=== PATIENT | male | born 1960 | race Caucasian/White ===

== ENCOUNTER → 2019-07-08 14:08 | Outpatient (BNVA) | payer MEDICAID, SELFPAY | PROVIDERS: Family Provider Nurse Practitioner Family; PCP Nurse Practitioner Family; Visit Provider Nurse Practitioner | DX: M54.16 Radiculopathy, lumbar region (principal); M54.2 Cervicalgia; Z79.891 Long term (current) use of opiate analgesic | CPT/HCPCS: 99213 ==

== ENCOUNTER → 2019-08-29 14:42 | Outpatient (BNVA) | payer MEDICAID, SELFPAY | PROVIDERS: Family Provider Nurse Practitioner Family; PCP Nurse Practitioner Family; Visit Provider Specialist | DX: G43.711 Chronic migraine without aura, intractable, with status migrainosus (principal); G31.84 Mild cognitive impairment of uncertain or unknown etiology; Z87.891 Personal history of nicotine dependence | CPT/HCPCS: 96116; 99214 ==

== ENCOUNTER → 2019-08-30 14:08 | Outpatient (BNVA) | payer MEDICAID, SELFPAY | PROVIDERS: Family Provider Nurse Practitioner Family; PCP Nurse Practitioner Family; Visit Provider Anesthesiology | DX: G89.29 Other chronic pain (principal); M54.16 Radiculopathy, lumbar region; M54.12 Radiculopathy, cervical region; Z79.891 Long term (current) use of opiate analgesic | CPT/HCPCS: 99214 ==

== ENCOUNTER → 2019-11-01 13:13 | Outpatient (BNVA) | payer MEDICAID, SELFPAY | PROVIDERS: Family Provider Nurse Practitioner Family; PCP Nurse Practitioner Family; Visit Provider Nurse Practitioner | DX: M54.16 Radiculopathy, lumbar region (principal); M25.552 Pain in left hip; M54.2 Cervicalgia; Z79.891 Long term (current) use of opiate analgesic | CPT/HCPCS: 99213; 99214 ==

== ENCOUNTER → 2019-11-24 07:45 | Outpatient (BNVA) | payer MEDICAID, SELFPAY | PROVIDERS: Family Provider Nurse Practitioner Family; PCP Nurse Practitioner Family; Visit Provider Specialist | DX: G43.711 Chronic migraine without aura, intractable, with status migrainosus (principal); Z87.891 Personal history of nicotine dependence | CPT/HCPCS: 99214 ==

== ENCOUNTER 2019-12-29 17:14 | Outpatient (CLI) | payer MEDICAID, SELFPAY ==
--- NOTE | 2019-12-29 17:34 | MR_ITS ---
WS: [id number] MRI HEAD WITHOUT CONTRAST TECHNIQUE: Sagittal T1, T2 axial, T2 axial FLAIR, axial and coronal T1 images, axial susceptibility w eighted imaging, axial diffusion weighted images, and coronal T2 images were obtained. CLINICAL INFORMATION: G43.711 Chronic migraine without aura, intractable, with ... COMPARISON: CT September 16, 2017 FINDINGS: No evidence of restricted diffusion to suggest acute ischemia. Ventricular system and basal cisterns are patent. No suspicious intracranial signal abnormalities. Minimal small vessel changes with modera te parenchymal volume loss worse involving the parietal lobes. Temporal lobes and hippocampal formati ons are normal in appearance. Incidental megacisterna magna. Normal posterior fossa. Normal vascular flow voids at the skull base. Mild mucosal thickening in the paranasal sinuses. Mastoid air cells are well aerated. Lobulated 3.5 mm suspected aneurysm along the right cavernous carotid artery although only seen on axial T2 imaging. This may be due to volume aver aging and recommend further evaluation with CTA or MRA. No hemosiderin on susceptibly weighted images. Normal optic chiasm and pituitary infundibulum. MR/MR head wo con* [id number] IMPRESSION: 1. No evidence of restricted diffusion to suggest acute ischemia. 2. Minimal small vessel changes with moderate parenchymal volume loss worse in the parietal lobes. 3. Temporal lobes and hippocampal formations are normal in appearance. 4. No hemosiderin on the susceptibility weighted images. 5. Lobulated flow void along the right cavernous carotid artery measuring 3.5 mm suspicious for small aneurysm. Recommend further evaluation with MRA or CTA. This is only seen on the axial T2 imaging. 6. Paranasal sinuses and mastoid air cells well aerated. 7. No other significant findings.
== END 2019-12-29 17:15 | disposition home or self-care (01) ==
LOC: RADSHAW 17:18
PROVIDERS: PCP Nurse Practitioner Family; Visit Provider Specialist
DX: G43.711 Chronic migraine without aura, intractable, with status migrainosus (principal)
CPT/HCPCS: 70551

== ENCOUNTER → 2020-01-04 07:57 | Outpatient (BNVA) | payer MEDICAID, SELFPAY | PROVIDERS: PCP Nurse Practitioner Family; Visit Provider Anesthesiology | DX: G89.29 Other chronic pain (principal); M54.16 Radiculopathy, lumbar region; M54.12 Radiculopathy, cervical region; G43.711 Chronic migraine without aura, intractable, with status migrainosus; Z79.891 Long term (current) use of opiate analgesic | CPT/HCPCS: 99214 ==

== ENCOUNTER 2020-01-25 09:17 | Outpatient (CLI) | payer MEDICAID, SELFPAY ==
--- NOTE | 2020-01-25 09:30 | MR_ITS ---
WS: [id number] MRA HEAD TECHNIQUE: Axial 3-D TOF images obtained with axial images and axial, sagittal, and coronal 2-D refor matted images. CLINICAL INFORMATION: R90.89 Other abnormal findings on diagnostic imaging of c... 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 No flow-abernathy iting stenosis. Distal vertebral arteries are patent. Basilar artery is patent. Normal vascularity to the [employer] territo ry bilaterally. Persistent left posterior cerebral artery. Dominant anterior circulation. Both ICAs are patent at the skull base. Normal vascularity to the [place] and MCA territories bilaterally . No evidence of high-grade proximal stenosis. Hypoplastic left A1 segment. MR/MR angio head wo con [id number] IMPRESSION: 1. 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 No flow-limiting stenosis. 2. Dominant anterior circulation with patent basilar artery and persistent lef t posterior cerebral artery. 3. Normal vascularity to the [place] and MCA territories bilaterally. Normal varia nt hypoplastic left A1.
== END 2020-01-25 09:18 | disposition home or self-care (01) ==
LOC: RADSHAW 09:23
PROVIDERS: PCP Nurse Practitioner Family; Visit Provider Specialist
DX: R90.89 Other abnormal findings on diagnostic imaging of central nervous system (principal); I72.0 Aneurysm of carotid artery
CPT/HCPCS: 70544

== ENCOUNTER → 2020-01-31 08:44 | Outpatient (BNVA) | payer MEDICAID, SELFPAY | PROVIDERS: PCP Nurse Practitioner Family; Visit Provider Specialist | DX: G43.711 Chronic migraine without aura, intractable, with status migrainosus (principal) | CPT/HCPCS: 99214 ==

== ENCOUNTER → 2020-03-13 10:21 | Outpatient (BNVA) | payer MEDICAID, SELFPAY | PROVIDERS: PCP Nurse Practitioner Family; Visit Provider Nurse Practitioner | DX: G89.29 Other chronic pain (principal); M54.42 Lumbago with sciatica, left side; M54.16 Radiculopathy, lumbar region; M54.12 Radiculopathy, cervical region; G43.711 Chronic migraine without aura, intractable, with status migrainosus; F07.81 Postconcussional syndrome; Z79.891 Long term (current) use of opiate analgesic | CPT/HCPCS: 99215 ==

== ENCOUNTER → 2020-04-05 09:35 | Outpatient (BNVA) | payer MEDICAID, SELFPAY | PROVIDERS: PCP Nurse Practitioner Family; Visit Provider Anesthesiology | DX: G89.29 Other chronic pain (principal); M54.12 Radiculopathy, cervical region; Z79.891 Long term (current) use of opiate analgesic | CPT/HCPCS: 62321; J1040 ==

== ENCOUNTER → 2020-04-10 09:49 | Outpatient (BNVA) | payer MEDICAID, SELFPAY | PROVIDERS: PCP Nurse Practitioner Family; Visit Provider Anesthesiology | DX: G89.29 Other chronic pain (principal); M54.16 Radiculopathy, lumbar region; M54.12 Radiculopathy, cervical region; G43.711 Chronic migraine without aura, intractable, with status migrainosus; Z79.891 Long term (current) use of opiate analgesic | CPT/HCPCS: 99214 ==

== ENCOUNTER → 2020-05-30 09:49 | Outpatient (BNVA) | payer MEDICAID, SELFPAY | PROVIDERS: PCP Nurse Practitioner Family; Visit Provider Anesthesiology | DX: G89.29 Other chronic pain (principal); M54.16 Radiculopathy, lumbar region; M54.12 Radiculopathy, cervical region; G43.711 Chronic migraine without aura, intractable, with status migrainosus; Z79.899 Other long term (current) drug therapy; Z79.891 Long term (current) use of opiate analgesic | CPT/HCPCS: 99214 ==

== ENCOUNTER → 2020-07-24 10:30 | Outpatient (BNVA) | payer BC, MEDICAID, SELFPAY | PROVIDERS: PCP Nurse Practitioner Family; Visit Provider Specialist | DX: G43.711 Chronic migraine without aura, intractable, with status migrainosus (principal); M54.16 Radiculopathy, lumbar region; Z87.891 Personal history of nicotine dependence | CPT/HCPCS: 99213; 99214 ==

== ENCOUNTER → 2020-08-07 08:50 | Outpatient (BNVA) | payer BC, MEDICAID, SELFPAY | PROVIDERS: PCP Nurse Practitioner Family; Visit Provider Anesthesiology | DX: G89.29 Other chronic pain (principal); G43.711 Chronic migraine without aura, intractable, with status migrainosus; M54.12 Radiculopathy, cervical region; M54.16 Radiculopathy, lumbar region; Z79.899 Other long term (current) drug therapy; Z79.891 Long term (current) use of opiate analgesic | CPT/HCPCS: 99214 ==

== ENCOUNTER → 2022-08-18 11:46 | Outpatient (BNVA) | payer BC, MEDICAID, SELFPAY | PROVIDERS: PCP Nurse Practitioner Family; Visit Provider Anesthesiology Pain Medicine | DX: G89.29 Other chronic pain (principal); M19.011 Primary osteoarthritis, right shoulder; M48.02 Spinal stenosis, cervical region | CPT/HCPCS: 72050; 73030 ==

== ENCOUNTER 2022-09-15 15:27 | Outpatient (CLI) | payer BC, MEDICAID, SELFPAY ==
--- NOTE | 2022-09-15 15:35 | MR_ITS ---
WS: [id number] MRI CERVICAL SPINE NONCONTRAST TECHNIQUE: Sagittal T1, T2 and STIR imaging. Axial T2, gradient, and fiesta imaging. CLINICAL INFORMATION: M54.12 - Radiculopathy, cervical region COMPARISON: MRI 2019 FINDINGS: Straightening with reversal normal cervical lordosis. Cord signal is normal. Mild disc bulging C4-C5, C5-C6, C6-C7.. C2-C3: Mild osteophytic ridging. Mild facet arthropathy. Mild RIGHT foraminal narrowing. C3-C4: Mild facet arthropathy. Mild to moderate LEFT bony foraminal narrowing. Spinal canal is patent . C4-C5: Disc osteophyte complex with endplate ridging. Moderate LEFT and mild RIGHT bony foraminal litzy rowing. Mild central canal stenosis. C5-C6: Disc osteophyte complex with endplate ridging. Slight indentation RIGHT ventral cervical cord. Moderate LEFT and mild RIGHT bony foraminal narrowing. Slight indentation the RIGHT ventral cervical cord. Mild central canal stenosis. C6-C7: Disc osteophyte complex with endplate ridging. Mild central canal stenosis. Moderate to severe LEFT and moderate RIGHT bony foraminal narrowing. Moderate facet arthropathy. Mild central canal carly nosis. C7-T1: Mild to moderate LEFT and mild RIGHT bony foraminal narrowing. Spinal canal is patent. Mild fa cet arthropathy. Visualized brain stem structures: Normal. Prevertebral soft tissues: Normal. MR/MR cervical spin wo con* [id number] IMPRESSION: 1. Straightening with reversal normal cervical lordosis is new from previous. Cord signal is normal. 2. Disc osteophyte complexes with mild central canal stenosis C4-C5, C5-C6 and C6-C7. Slight contact of the cervical cord at these levels. This is unchanged from previous. 3. Mild to moderate LEFT C3-C4, LEFT C4-C5, moderate LEFT C5-C6 bony foraminal narrowing. Moderate LEFT C6-C7 bony foraminal narrowing. Foraminal narrowing i s similar to previous. 4. No other significant interval changes.
== END 2022-09-15 15:28 | disposition home or self-care (01) ==
LOC: RAD 15:30
PROVIDERS: PCP Nurse Practitioner Family; Visit Provider Anesthesiology Pain Medicine
DX: M54.12 Radiculopathy, cervical region (principal); M25.78 Osteophyte, vertebrae; M48.02 Spinal stenosis, cervical region
CPT/HCPCS: 72141

== ENCOUNTER → 2022-09-18 10:08 | Outpatient (BNVA) | payer BC, MEDICAID, SELFPAY | PROVIDERS: PCP Nurse Practitioner Family; Visit Provider Nurse Practitioner | DX: Z79.899 Other long term (current) drug therapy (principal) | CPT/HCPCS: 82607 ==

== ENCOUNTER → 2022-11-27 10:23 | Outpatient (BNVA) | payer BC, MEDICAID, SELFPAY | PROVIDERS: PCP Nurse Practitioner Family; Visit Provider Anesthesiology Pain Medicine | DX: M54.16 Radiculopathy, lumbar region (principal) | CPT/HCPCS: 72110 ==

== ENCOUNTER → 2023-04-21 13:41 | Outpatient (BNVA) | payer BC, MEDICAID, SELFPAY | PROVIDERS: PCP Nurse Practitioner Family; Visit Provider Nurse Practitioner Family | DX: F03.90 Unspecified dementia, unspecified severity, without behavioral disturbance, psychotic disturbance, mood disturbance, and anxiety (principal) | CPT/HCPCS: 80053; 82607; 84439; 84443; 85007; 85027; 86140 ==

== ENCOUNTER → 2023-10-15 08:18 | Outpatient (BNVA) | payer MEDICARE, MEDICAID, SELFPAY | PROVIDERS: PCP Nurse Practitioner Family; Visit Provider Psychiatry & Neurology Neurology | DX: G44.309 Post-traumatic headache, unspecified, not intractable (principal); R41.3 Other amnesia; R55 Syncope and collapse; M54.2 Cervicalgia; M54.12 Radiculopathy, cervical region; M54.16 Radiculopathy, lumbar region; G89.29 Other chronic pain; R32 Unspecified urinary incontinence; N40.0 Benign prostatic hyperplasia without lower urinary tract symptoms; F03.90 Unspecified dementia, unspecified severity, without behavioral disturbance, psychotic disturbance, mood disturbance, and anxiety; E55.9 Vitamin D deficiency, unspecified; R29.2 Abnormal reflex; I67.1 Cerebral aneurysm, nonruptured | CPT/HCPCS: 36415; 80051; 82306; 82542; 82607; 83735; 83921; 84207; 84425; 86592; 86780; 99203 ==

== ENCOUNTER → 2023-12-07 15:47 | Outpatient (BNVA) | payer MEDICARE, MEDICAID, SELFPAY | PROVIDERS: PCP Nurse Practitioner Family; Visit Provider Nurse Practitioner Family | DX: R60.0 Localized edema (principal); R60.9 Edema, unspecified; Z79.899 Other long term (current) drug therapy | CPT/HCPCS: 80053; 81003; 83880; 85025; 87086 ==

== ENCOUNTER → 2024-01-05 06:58 | Outpatient (BNVA) | payer MEDICARE, MEDICAID, SELFPAY | PROVIDERS: PCP Nurse Practitioner Family; Visit Provider Psychiatry & Neurology Neurology | DX: G43.711 Chronic migraine without aura, intractable, with status migrainosus (principal); R55 Syncope and collapse; R41.3 Other amnesia | CPT/HCPCS: 95819 ==

== ENCOUNTER → 2024-04-12 14:46 | Outpatient (BNVA) | payer MEDICARE, MEDICAID, SELFPAY | PROVIDERS: PCP Nurse Practitioner Family; Visit Provider Psychiatry & Neurology Neurology | DX: F03.90 Unspecified dementia, unspecified severity, without behavioral disturbance, psychotic disturbance, mood disturbance, and anxiety (principal); G44.309 Post-traumatic headache, unspecified, not intractable; I67.1 Cerebral aneurysm, nonruptured | CPT/HCPCS: 36415; 82746; 84207; 99212; 99213 ==

== ENCOUNTER 2024-05-09 14:42 | Outpatient (CLI) | payer MEDICARE, MEDICAID, SELFPAY ==
--- NOTE | 2024-05-09 15:15 | MR_ITS ---
WS: [id number] MRI HEAD WITH CONTRAST TECHNIQUE: Sagittal T1, T2 axial, T2 axial FLAIR, axial susceptibility weighted imaging, axial diffus ion weighted images, and coronal T2 images were obtained. Pre and post-T1 axial and post T1 coronal i mages. ADC and FSPGR images. CLINICAL INFORMATION: I63.9 - Cerebral infarction, unspecified COMPARISON: MRI 2020 FINDINGS: No evidence of restricted diffusion to suggest acute ischemia. Minimal small vessel changes. Moderate parenchymal volume loss worse in the parietal lobes. Normal posterior fossa. Normal vascular flow vo ids at the skull base. Stable RIGHT cavernous carotid artery aneurysm described on the MRA. Mild muco leni thickening in the paranasal sinuses. Mastoid air cells are well aerated. Normal posterior nasopharynx. Normal optic chiasm and pituitary infundibulum. Temporal lobes and hippocampal formations are normal in appearance. Mild symmetric atro phy. No hemosiderin on susceptibility-weighted images. MR/MR head wo/w con [id number] IMPRESSION: 1. No evidence of restricted diffusion to suggest acute ischemia. 2. Minimal small vessel changes with moderate parenchymal volume loss. 3. No hemosiderin on susceptibility-weighted images. 4. No other significant changes compared to previous.
--- NOTE | 2024-05-09 16:00 | MR_ITS ---
WS: [id number] MR CERVICAL SPINE WO/W COMPARISON: MRI 09/15/2022 HISTORY: M54.12 - Radiculopathy, cervical region TECHNIQUE: Sagittal T1, T2 and T2 inversion recovery; axial T2, T2 gradient and fiesta. Post gadolini um imaging with fat saturation technique. FINDINGS: Straightening of the normal cervical lordosis. Mild disc bulging worse at C4-C6. Mild central canal s tenosis at these levels. Slight indentation on the cervical cord. Central canal stenosis appears slig htly progressed at C6-7 where it appears moderate C2-3: Mild facet arthropathy. Mild RIGHT and no significant LEFT foraminal narrowing. C3-4: Mild disc bulge with endplate ridging. Moderate facet arthropathy. Moderate LEFT and no signifi cant RIGHT foraminal narrowing. C4-5: Shallow central disc bulging with mild central canal stenosis. Slight indentation cervical cord . Moderate facet arthropathy. Moderate LEFT and mild RIGHT bony foraminal narrowing. C5-6: RIGHT paracentral disc osteophyte protrusion with indentation on the RIGHT ventral cervical cor d. Mild central canal stenosis. Severe LEFT and moderate RIGHT bony foraminal narrowing. Moderate fac et arthropathy. C6-7: Disc osteophyte complex with moderate central canal stenosis. Indentation of the cervical cord. This appears slightly progressed compared to previous. Severe LEFT and moderate RIGHT bony foraminal narrowing. Moderate facet arthropathy. Suggestion of a tiny amount of myelomalacia in the cervical c ord at this level. C7-T1: Mild disc bulge with endplate ridging. Mild to moderate bilateral bony foraminal narrowing. Sp inal canal is patent. MR/MR cervical spine wo/w [id number] IMPRESSION: 1. Mild central canal stenosis C4-C5 and C5-C6 with slight indentation of the cervical cord. 2. Moderate central canal stenosis C6-7 with indentation of the LEFT ventral c ervical cord. Central canal stenosis appears slightly progressed at this level 3. Small amount of myelomalacia in the cervical cord at C6-7. 4. Multilevel bony foraminal narrowing worse at LEFT C3-C4, LEFT C4-C5, LEFT C 5-C6 and severe LEFT C6-7.
[2024-05-09] MEDS: gadobenate dimeglumine 20 mL vial IV (16:32)
--- NOTE | 2024-05-09 16:45 | MR_ITS ---
WS: [id number] MRA HEAD TECHNIQUE: Axial 3-D TOF images obtained with axial images and axial, sagittal, and coronal 2-D refor matted images. CLINICAL INFORMATION: I67.1 - Cerebral aneurysm, nonruptured COMPARISON: 2019 FINDINGS: Stable medially projecting aneurysm right cavernous carotid artery measuring 3.6 x 2.9 mm. This appea rs unchanged from previous. Small distal vertebral arteries are patent. Basilar artery is patent. Normal vascularity to the [employer] t erritory bilaterally. Persistent left posterior cerebral artery. Dominant anterior circulation. Both ICAs are patent at the skull base. Normal vascularity to the [place] and MCA territories bilaterall y. No evidence of proximal flow-limiting stenosis. Normal variant hypoplastic left A1 segment. MR/MR angio head wo con [id number] IMPRESSION: 1. No significant change since 2019. 2. Stable medially projecting RIGHT cavernous carotid artery aneurysm measurin g 3.6 mm. 3. Dominant anterior circulation with persistent LEFT posterior cerebral artery. 4. Hypoplastic LEFT A1
== END 2024-05-09 14:43 | disposition home or self-care (01) ==
LOC: RAD 14:43
PROVIDERS: PCP Nurse Practitioner Family; Visit Provider Specialist
DX: I63.9 Cerebral infarction, unspecified (principal); M54.12 Radiculopathy, cervical region; I72.0 Aneurysm of carotid artery; Q25.42 Hypoplasia of aorta; M47.892 Other spondylosis, cervical region; M99.61 Osseous and subluxation stenosis of intervertebral foramina of cervical region; M25.78 Osteophyte, vertebrae; G31.89 Other specified degenerative diseases of nervous system
CPT/HCPCS: 70544; 70553; 72156

== ENCOUNTER → 2024-06-13 14:28 | Outpatient (BNVA) | payer MEDICARE, MEDICAID, SELFPAY | PROVIDERS: PCP Nurse Practitioner Family; Visit Provider Nurse Practitioner Family | DX: E55.9 Vitamin D deficiency, unspecified (principal); N40.0 Benign prostatic hyperplasia without lower urinary tract symptoms; Z79.899 Other long term (current) drug therapy; R60.0 Localized edema; Z12.5 Encounter for screening for malignant neoplasm of prostate; R60.9 Edema, unspecified | CPT/HCPCS: 80053; 80061; 81003; 82306; 83036; 84443; 85025; G0103 ==

== ENCOUNTER → 2024-07-18 15:23 | Outpatient (BNVA) | payer MEDICARE, MEDICAID, SELFPAY | PROVIDERS: PCP Nurse Practitioner Family; Visit Provider Nurse Practitioner Family | DX: E87.6 Hypokalemia (principal) | CPT/HCPCS: 80053 ==

== ENCOUNTER → 2024-07-28 11:31 | Outpatient (BNVA) | payer MEDICARE, MEDICAID, SELFPAY | PROVIDERS: PCP Nurse Practitioner Family; Visit Provider Psychiatry & Neurology Neurology | DX: G44.309 Post-traumatic headache, unspecified, not intractable (principal); M54.2 Cervicalgia; M48.00 Spinal stenosis, site unspecified; R41.3 Other amnesia; F03.90 Unspecified dementia, unspecified severity, without behavioral disturbance, psychotic disturbance, mood disturbance, and anxiety; I67.1 Cerebral aneurysm, nonruptured | CPT/HCPCS: 36415; 83520; 99212 ==

== ENCOUNTER → 2024-08-09 15:33 | Outpatient (BNVA) | payer MEDICARE, MEDICAID, SELFPAY | PROVIDERS: PCP Nurse Practitioner Family; Visit Provider Orthopaedic Surgery | DX: M54.12 Radiculopathy, cervical region (principal); G89.29 Other chronic pain; M54.2 Cervicalgia | CPT/HCPCS: 72050; 99204 ==

== ENCOUNTER → 2025-04-11 13:47 | Outpatient (BNVA) | payer MEDICARE, MEDICAID, SELFPAY | PROVIDERS: PCP Nurse Practitioner Family; Visit Provider Nurse Practitioner Family | DX: E87.6 Hypokalemia (principal); Z79.899 Other long term (current) drug therapy; N40.1 Benign prostatic hyperplasia with lower urinary tract symptoms; R35.1 Nocturia; R41.3 Other amnesia; R60.9 Edema, unspecified; F03.90 Unspecified dementia, unspecified severity, without behavioral disturbance, psychotic disturbance, mood disturbance, and anxiety | CPT/HCPCS: 80053; 80061; 82306; 83036; 84443; 85025 ==